=== PATIENT | female | born 1940 | race Caucasian/White ===

== ENCOUNTER 2018-11-25 09:18 | Outpatient (CLI) | payer MEDICARE, OTHER ==
[2018-11-25] VITALS (19 sets, daily range): BP systolic 118–174; BP diastolic 62–97; PULSE 67–93; TEMP 98.5
[~2018-11-25] VITALS: Ht 160 cm; Wt 42.5 kg
[~2018-11-25 09:18] MED LIST: MULTI VITAMINS1 TAB PO
--- NOTE | 2018-11-25 10:35 | NUR ---
Pt to ct per wheelchair. Denies pain. Monitors applied to pt. O2 on at 2l/nc. Pt positioned on ct table with right side down.
--- NOTE | 2018-11-25 10:45 | NUR ---
Dr Stafford into talk with pt regarding procedure. Informed of potential for pneumonthorax.
--- NOTE | 2018-11-25 11:13 | NUR ---
Specimen obtained by Dr Stafford and placed in formalin. Specimen labeled.
--- NOTE | 2018-11-25 11:30 | NUR ---
Pt to EU 9 per cart s/p lung bx. Pt is on 2L O2 per NC. Pt resting well.
--- NOTE | 2018-11-25 14:10 | NUR ---
Pt has ambulated, voided and dale po intake s n/v. PIV removed with catheter intact.
--- NOTE | 2018-11-25 14:20 | NUR ---
Pt discharged per w/c by nurse with and son.
== END 2018-11-25 16:21 | disposition home or self-care (01) ==
LOC: COL.RAD 09:18
DX: R91.8 Other nonspecific abnormal finding of lung field (principal)
CPT/HCPCS: J2250; J3010